=== PATIENT | female | born 1975 | race Caucasian/White ===

== ENCOUNTER 2021-05-04 13:19 | Observation (INO) | payer BC, OTHER ==
[~2021-05-04] VITALS: Ht 167.6 cm; Wt 104.3 kg
[~2021-05-04 13:19] MED LIST: ASA81BEC PO; FLONASE 0.05%50 MCG NARES; LISINOPRIL10 MG PO; NIFEDIPINE ER90 MG PO; ONE-A-DAY WOMENS PO; PROAIR HFA8.5 GM INH; SINGULAIR 10 MG10 M1 PO; SYMBICORT160 MCG/4. INH; ZYRTEC 10 MG TA10 MG PO
[2021-05-04 14:31] VITALS: BP 141/84
--- NOTE | 2021-05-04 21:00 | NUR ---
Pt. arrived to the unit post op lap pillo. She is alert and oriented. Medicated for c/opain and naysea (see emar). VSS. Lapsites times 4 with bandaides to abdomen are dry and intact.
[2021-05-05 04:18] VITALS: BP 149/94
--- NOTE | 2021-05-05 04:33 | NUR ---
Pt. rested quietly at short intervals during the night when checked on during frequent rounds. She has been medicated for abdominal pain (see emar). Am- bulated to the bathroom several times and she did void.
--- NOTE | 2021-05-05 08:11 | EKG ---
[place] [address] [facility] [place] [address] ELECTROCARDIOGRAM REPORT Name: YEN SORIA Room #: 458-P [facility] M.R.#: [id number] Admission: 05/04/21 Attend Phys: Rey Bal MD Discharge: Date of : 79 Report #: [id number] [facility] Test Date: 2021-05-04 Test Time: 14:20:07 Pat Name: YEN SORIA Department: Room: [facility] Gender: F Sole Tier: MAYNOR : 1975 Requested By: Rey Bal Order Number: [id number] MD: Solomon Peterson Measurements Intervals [place] Rate: 76 P: 42 [place]: 124 QRS: 48 QRSD: 91 T: 52 QT: 411 QTc: 463 Interpretive Statements Sinus rhythm Abnormal R-wave progression, early transition No previous ECG available for comparison Electronically Signed On 05-05-2021 8:11:03 EDITORIAL WRITER by Solomon Peterson [email or web address] <ELECTRONICALLY SIGNED> By: Solomon Peterson MD, [facility] 05/05/21 0811 1420 1420 Solomon Peterson MD, FAC /EPI
[2021-05-05 11:41] VITALS: BP 145/94
--- NOTE | 2021-05-05 12:39 | NUR ---
ASSUMED CARE OF PT AT 0700. PT A&OX4. 4 LAP SITES TO ABDOMEN ARE CDI. MEDS GIVEN ORDERED. PT DC'D HOME WITH
--- NOTE | 2021-05-07 10:08 | PATH ---
[facility] [address] [place] [address] PATHOLOGY RPT PROCEDURE Name: YEN SORIA Room #: 458-P ARA Marcum#: [id number] Admission: 05/04/21 Date of : 79 Discharge: 05/05/21 Report #: [id number] Path Case #: [id number] [facility] Accession Number: [id number] . 01 Material submitted: . gallbladder - GALLBLADDER . 01 Clinical history: . LAPAROSCOPIC CHOLECYSTECTOMY WITH G GALLBLADDER DISEASE WITH STONES PLUS UMIBILICAL HERNIA . 02 Diagnosis: Gallbladder, cholecystectomy: - Mild chronic cholecystitis, cholesterolosis with cholelithiasis. (ANK:brice 05/06/2021) S 05/06/[address] [facility] Local . 02 Electronically signed: . Ruth Liu MD, Pathologist NPI- [id number] . 01 Gross description: . Fixative: Formalin Labeled: Gallbladder Specimen received: Previously disrupted gallbladder Dimensions: 8.1 x 3.6 x 0.8 cm Serosa: Light hurley-hernandez and bile-stained Lymph node: None identified Mucosa: Velvety, bile-stained, and focally patchy with yellow stippling Average wall thickness: 0.2 cm Calculi: A single light hurley-yellow to dark hurley calculi measuring 2.6 x 2.1 x 2.0 cm Abnormalities: None identified . A1- Scoop Driver body, fundus, and the cystic duct margin. ([facility]; 05/05/2021) [facility] 05/05/2021 1353 Local . 02 Pathologist provided ICD-10: K80.10, K82.4 . 02 CPT . 085857 Specimen Comment: A courtesy copy of this report has been sent to [phone] Specimen Comment: Report sent to Specimen Comment: A duplicate report has been [place] [address] PATHOLOGY RPT PROCEDURE Name: YEN SORIA Room #: 458-P ARA Marcum#: [id number] Admission: 05/04/21 Date of : 79 Discharge: 05/05/21 Report #: [id number] Path Case #: [id number] updates. Performed at: 01 [facility] [place] [address] [facility] [address], [place], [place] [id number] MD Carlos Yanez MD Phone: [phone] Performed at: [address] [id number] MD Kacie Zapata MD Phone: [phone]
--- NOTE | 2021-05-08 14:40 | O ---
[facility] [place] [address] OPERATIVE REPORT Name: YEN SORIA Room #: 458-P [facility] Blair Marcum#: [id number] Admission: 05/04/21 Attend Phys: Rey Bal MD Discharge: 05/05/21 Date of : 79 Report #: [id number] THIS REPORT FOR: cc: EILEEN - Family physician unknown FAM - Family physician unknown Rey Bal MD ~ DATE OF SERVICE: 05/04/2021 PREOPERATIVE DIAGNOSIS: Cholecystitis with cholelithiasis. POSTOPERATIVE DIAGNOSES: 1. Cholecystitis with cholelithiasis. 2. Umbilical hernia. ANESTHESIA: General. SURGEON: Rey Bal MD COMPLICATIONS: None. ESTIMATED BLOOD LOSS: 15 mL PROCEDURES PERFORMED: 1. Laparoscopic cholecystectomy with cholangiogram. 2. Repair of umbilical hernia. DESCRIPTION OF PROCEDURE: With the patient under general anesthesia, abdomen was prepped and draped in sterile fashion. Timeout was performed. The patient did receive preoperative IV antibiotics. A 0.25% Marcaine was used to anesthetize the skin. Curvilinear incision was made infraumbilically about 2.5 cm. After dissecting through the skin and subcutaneous tissue, a properitoneal fat, which was fairly significant sized was found underneath the skin. This was followed posteriorly into the fascia where there is a hole present. This could be an incisional hernia from previous tubal ligation. Most of the properitoneal fat was removed. The rest of it was then reduced in the properitoneal space after freeing this from the fascial edges. The fascial edges were identified. 0 Vicryl suture placed on the fascial edges for retraction. With the abdominal wall lifted anteriorly with the stay sutures, Veress needle was then placed through peritoneum. Abdominal cavity was then insufflated CO2 without difficulty. After creating pneumoperitoneum, an 11 mm trocar was placed under visualization into the pneumoperitoneum, no harm to the underlying tissue. Two 5 mm trocars placed in right upper quadrant. The 5 mm trocars placed in right epigastrium. The gallbladder is moderately distended. No erythema or wall thickening. Fundus of gallbladder was grasped, lifted over the liver. Proximal gallbladder was also identified, grasped with graspers. A fat over the cystic duct was dissected and the peritoneum was dissected free starting laterally and [facility] [address] [place] [address] OPERATIVE REPORT Name: YEN SORIA Room #: 458-P [facility] Blair Marcum#: [id number] Admission: 05/04/21 Attend Phys: Rey Bal MD Discharge: 05/05/21 Date of : 79 Report #: [id number] then proceeding medially. The cystic duct was isolated without difficulty. It appears to be a twisting between the gallbladder and the cystic duct. This was straightened out. At one point, there was a large stone palpated at the proximal gallbladder. It must be mobile. Does not seem to be impacted, but her symptoms could be caused by the stone getting stuck here periodically. Cystic duct was isolated without difficulty. A clip was placed in junction of cystic duct to the gallbladder. Opening was made in the cystic duct and the taut cholangiogram catheter was placed into the opening. This was held with a clip. Fluoroscopic cholangiogram was obtained. The cholangiogram catheter identified in the cystic duct. Initially, the common duct filled out and dye flowed into the duodenum more readily. At much, went up. I can see a faint visualization of the upper duct. Re-injection was then performed. At this time, the patient was placed in the slight Trendelenburg position. With the second run, I was able to see more of the proximal hepatic duct and the bifurcation. Contrast still flow more into the duodenum, then upward. The cholangiogram catheter identified in the cystic duct. No harm to the common duct was seen. The cholangiogram catheter was then removed. The proximal cystic duct was clipped x2 and then divided. Cystic artery was then isolated. This was clipped x2 proximally, one distally and then divided. Gallbladder was freed from the liver bed. Around the mid part of the gallbladder, it was very difficult to separate the gallbladder from the liver bed and the patient did have some venous oozing from the dissection. Surgicel was placed over the gallbladder bed. Rest of the gallbladder was then dissected free. Once the gallbladder was freed, it was placed in a specimen bag. This was retrieved through the infraumbilical port. There is a large stone present. I did not have to open the fascia on the left lateral side of the defect of the hernia that was described. The stone then came out, it is an oval 2 x 3 cm size stone, smooth surface. No other stones identified. Cholesterolosis identified in the gallbladder wall. Liver bed was checked, hemostasis obtained. Clips were intact. Surgicel fibrillar was removed and then pressure points were placed on the liver bed. Irrigation was performed and irrigation was aspirated out. The fascial edges identified. The fascia was then closed with [id number] PDS x2. Skin was irrigated. Skin was closed with 5-0 PDS. Steri-Strip, Band-Aids applied. The patient was taken to recovery room, tolerated the procedure well. <ELECTRONICALLY SIGNED> By: Rey Bal MD 05/08/21 1440 2107 Rey Bal MD /cinthia
== END 2021-05-05 15:09 | disposition home or self-care (01) ==
LOC: OR 13:19 → 4W 21:05
PROVIDERS: ADMIT Surgery; ATTEND Surgery
DX: K80.10 Calculus of gallbladder with chronic cholecystitis without obstruction (principal); K42.9 Umbilical hernia without obstruction or gangrene; Z20.822 Contact with and (suspected) exposure to COVID-19; Z79.899 Other long term (current) drug therapy; Z88.8 Allergy status to other drugs, medicaments and biological substances
CPT/HCPCS: 50010; 50101; 50411; 50555; 51489; 52265; 53307; 53310; 53312; 55245; 55317; 56462; 56525; 56526; 58574; 58910; 62110; 62900; 70005